=== PATIENT | male | born 1965 | race African-American/Black ===

== ENCOUNTER 2019-04-25 11:54 | Inpatient (IN) | payer SELFPAY ==
[2019-04-25 13:26] LABS: #Basophils 0.1 thou/uL (0.0-0.2); #Lymphocytes 2.4 thou/uL (1.20-3.40); #Monocytes 0.8 thou/uL (0.11-0.59); #Neutrophils 5.7 thou/uL (1.40-6.50); %Basophils 0.8 % (0.0-1.0); %Eosinophils 0.4 % (0.0-10.0); %Lymphocytes 26.2 % (21.0-51.0); %Monocytes 8.9 % (0.0-10.0); %Neutrophils 63.7 % (42.0-75.0); Hemoglobin 16.2 g/dL (14.0-18.0); Mean Corpuscular HGB CONC 32.1 g/dL (32.0-36.0); Mean Corpuscular Hemoglobin 29.3 pg (27.0-31.0); Mean Platelet Volume 6.5 fL (7.4-10.4); Platelet Count 240 thou/uL (130-400); Red Blood Cell (RBC) Count 5.55 mill/uL (4.70-6.10)
[2019-04-25 13:49] LABS: ALT (SGPT) 38 U/L (8-55); AST (SGOT) 49 U/L (5-34); Albumin 4.7 g/dL (3.5-5.0); Alkaline Phosphatase 102 U/L (40-150); Anion Gap 16 mmol/L (10-20); BUN (Urea Nitrogen) 57 mg/dL (8.4-25.7); Bilirubin, Total 1.5 mg/dL (0.2-1.2); CK (CPK) 945 U/L (30-200); Calc. Creatinine Clearance 0 mL/min (70-130); Calcium 10.3 mg/dL (7.8-10.44); Carbon Dioxide 27 mmol/L (22-29); Chloride 92 mmol/L (98-107); Estimated GFR-MDRD 23; Globulin 4.6 g/dL (2.4-3.5); Glucose 104 mg/dL (70-105); Lipase 17 U/L (8-78); Potassium 3.6 mmol/L (3.5-5.1); Protein, Total 9.3 g/dL (6.0-8.3); Sodium 131 mmol/L (136-145)
[2019-04-25] MEDS ORDERED: Ondansetron PF 4 MG/2 ML Vial ONE (15:00)
--- NOTE | 2019-04-25 15:05 | PDOC.FPRHP ---
- History of Present Illness Chief Complaint: nausea and vomiting History of Present Illness: 54 y/o aa male patient presents to the ED with nausea and vomiting since Sunday. He states that he was working in the heat on Sunday and got overheated. He started feeling nauseous and has been vomiting intermittently since then. He complains of not being able to keep any food or fluids down the past X3 days. Patient denies any dysuria, hematuria, or dark urine. He denies any muscle aches , fever, or joint pains. He states that he has had some muscle cramping the past couple of days, that is new. Patient denies any chest pain, shortness of breath, or headaches. - Allergies/Adverse Reactions Allergies Allergy/AdvReac Type Severity Reaction Status Date / Time No Known Allergies Allergy Unverified 04/25/19 14:57 - History PMHx: patient has no know medical problems PSHx: no past surgeries FHx: Mom- HTN, Brother-HTN. Social: Patient denies any drug, etoh, or tobacco abuse. Works in a [employer] in the heat. - Review of Systems General: denies: fever/chills, weight/appetite/sleep changes, night sweats ENT: denies: nasal congestion, rhinorrhea Respiratory: denies: cough, shortness of breath Cardiovascular: denies: chest pain, edema Gastrointestinal: reports: nausea, vomiting. denies: diarrhea, constipation, GI bleeding Genitourinary: denies: incontinence, dysuria, polyuria, discharge Skin: denies: rashes Musculoskeletal: reports: other (muscle cramps). denies: pain Neurological: denies: syncope - Vital signs BP: 118/87 HR: 58 RR: 18 Tmax: 98.2 Pox: 96% on RA Wt: 68.04 - Physical Exam Constitutional: NAD, awake, alert and oriented, well developed HEENT: normocephalic and atraumatic, PERRLA, EOMI, conjunctiva clear, no scleral icterus, grossly normal vision, grossly normal hearing, other (dry mucus membranes) Neck: supple, FROM, trachea midline, no JVD Chest: no-tender to palpation, no lesions Heart: RRR, normal S1/S2, no murmurs/rubs/gallops, pulses present, no edema Lungs: CTAB, no respiratory distress, good air movement, no rales/rhonchi, no wheezing, no retractions Abdomen: soft, non-tender, bowel sounds present, no masses/distention, no hernias Musculoskeletal: normal structure, normal tone, ROM grossly normal Neurological: no focal deficit Skin: no rash/lesions, capillary refill <2 seconds (Delayed skin turgor) Heme/Lymphatic: no unusual bruising or bleeding Psychiatric: normal mood and affect, good judgment and insight, intact recent and remote memory FMR H&P: Results - Labs Result Diagrams: 04/25/19 13:09 04/25/19 13:09 Lab results: WBC 9.0 thou/uL (4.8-10.8) 04/25/19 13:09 Hgb 16.2 g/dL (14.0-18.0) 04/25/19 13:09 Hct 50.5 % (42.0-52.0) 04/25/19 13:09 MCV 91.0 fL (78.0-98.0) 04/25/19 13:09 Plt Count 240 thou/uL (130-400) 04/25/19 13:09 Neutrophils % 63.7 % (42.0-75.0) 04/25/19 13:09 Sodium 131 mmol/L (136-145) L 04/25/19 13:09 Potassium 3.6 mmol/L (3.5-5.1) 04/25/19 13:09 Chloride 92 mmol/L (98-107) L 04/25/19 13:09 Carbon Dioxide 27 mmol/L (22-29) 04/25/19 13:09 BUN 57 mg/dL (8.4-25.7) H 04/25/19 13:09 Creatinine 3.39 mg/dL (0.7-1.3) H 04/25/19 13:09 Glucose 104 mg/dL (70-105) 04/25/19 13:09 Calcium 10.3 mg/dL (7.8-10.44) 04/25/19 13:09 Total Bilirubin 1.5 mg/dL (0.2-1.2) H 04/25/19 13:09 AST 49 U/L (5-34) H 04/25/19 13:09 ALT 38 U/L (8-55) 04/25/19 13:09 Alkaline Phosphatase 102 U/L (40-150) 04/25/19 13:09 Creatine Kinase 945 U/L (30-200) H 04/25/19 13:09 Serum Total Protein 9.3 g/dL (6.0-8.3) H 04/25/19 13:09 Albumin 4.7 g/dL (3.5-5.0) 04/25/19 13:09 Lipase 17 U/L (8-78) 04/25/19 13:09 FMR H&P: A/P - Problem List (1) Acute renal failure Current Visit: Yes Status: Acute (2) Stage 3 acute kidney injury Current Visit: Yes Status: Acute Code(s): N17.9 - ACUTE KIDNEY FAILURE, UNSPECIFIED (3) Dehydration Current Visit: Yes Status: Acute Code(s): E86.0 - DEHYDRATION (4) Liver enzyme elevation Current Visit: Yes Status: Acute Code(s): R74.8 - ABNORMAL LEVELS OF OTHER SERUM ENZYMES (5) Hyponatremia Current Visit: Yes Status: Acute Code(s): E87.1 - HYPO-OSMOLALITY AND HYPONATREMIA (6) Elevated CPK Current Visit: Yes Status: Acute - Plan 54 y/o male admitted inpatient to medical for Acute Renal Failure secondary to volume depletion and dehydration. 1. Acute Renal Failure -Most likely secondary to dehydration and volume depletion. Patient works outside in a [employer] with very hot environment. Plan to rehydrate intravenously and monitory CMP. -Cr 3.39, BUN 57 -CK 945 -UA results pending -Ordered 2 L of IV LR bolus to be given in the ED. -Start 200 mL/hr LR after fluid bolus -recheck CMP in the AM 2. Dehydration -Patient appears clinically dehydrated and has lab evidence of AKF -bolus fluids and then 200 mL/hr IV rehydration 3. Hypovolemic Hyponatremia -Most likely due to hypovolemia secondary to dehydration. -Na is 131 -monitor CMP for improvement post fluid resuscitation 4. Liver enzyme elevation -AST 49, ALT 38 -Likely secondary to hypovolemia -will recheck in AM 5. Elevated CK -CK 945 -continue IV hydration -order urine myoglobin -Recheck in AM 6. Full Code 7. DVT PPX: SCD's 9. Diet: regular Disposition/LOS: Patient is stable. Will intravenously hydrate at 200 mL/hr after fluid bolus, and reevaluate labs in the morning. 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 He reports still going to work and having profuse sweating. For the last couple of days he has been unable to tolerate PO. He reports that he has not had any body aches, AMS, or changes to medication. He denies SOB, fevers, chills, diarrhea, or recent illness. Please see architecture intern note above for further documentation. Physical Exam: General: NAD, appears stated age. Dry mucous membranes CV: RRR, no murmurs Respiratory: CTA bilaterally Abdomen: Soft, nontender, normoactive BS Extremities: Moves all four extremities. No edema Neuro: No focal deficits. CN 2 -12 grossly intact Psych: A&O x3. - Plan Date/Time: 04/25/19 0495 I, Kumar Longoria MD, have evaluated this patient and agree with findings/ plan as outlined by architecture intern resident. Pertinent changes/additions are listed here. 1. Acute Renal Failure secondary to volume depletion - s/p 2L NS in ED - IVF LR @ 200 ml/hr - Monitor urine output - Repeat CMP in AM - Zofran for n/v 2. Elevated CK - 945 on presentation - Repeat CK in AM - Consider urine myoglobin testing 3. Hyperbilirubinemia - Likely secondary to dehydration 4. Hyponatremia - Likely secondary to volume depletion 5. Mild elevated AST - Could be due to alcohol use - Trend with CMP CODE STATUS: FULL CODE PCP: CC Disposition: Stable, will admit to Medical floor for further monitoring and evaluation. Addendum - Attending - Attending Attestation Date/Time: 04/25/19 9950 I personally evaluated the patient and discussed the management with Dr. Larsen/ Swtai. I agree with the History, Examination, Assessment and Plan documented above with any addition or exceptions noted below. Patient with no known medical history here with 3 days of nausea/vomiting and decreased PO intake in the setting of working in hot environment. He has developed some malaise but endorses sweating normally, producing adequate urine , and denies any dark urine, headache, body aches, chest pain, shortness of breath. He does not take any medications daily. His exam is benign and vitals are stable. He has creatinine of >3, increased from a previous lab we have on file here that showed normal creatinine. He also has a mild increase in CK to < 1000. Patient will be admitted for AKI3/ARF, perform urine studies but anticipate this is all pre-renal in nature and due to decreased effective circulating volume. Will give aggressive IV fluids, recheck labs tomorrow. Low suspicion for other causes as his electrolytes are consistent with hypovolemia. Will pursue further workup including renal u/s if his values do not improve through the night. No indication for nephrology consult at this time as no urgent indication for dialytic intervention.
[2019-04-25 16:09] LABS: Bilirubin Negative (Negative); Blood, Urine Trace (Negative); Clarity Turbid (Clear); Glucose, Urine (Dipstick) Normal (Negative); Leukocyte Negative Leu/uL (Negative); Nitrite Negative (Negative); Protein, Urine (Dipstick) 30 mg/dL (Neg-Trace); RBC/HPF 0-3 HPF (0-3); Squamous Epithelial 0-3 HPF (0-3); Urobilinogen Normal mg/dL (Less than 2); WBC/HPF 21-50 HPF (0-3)
[2019-04-25 16:34] LABS: Bacteria/HPF None Seen HPF (None Seen)
[2019-04-25] MEDS ORDERED: Ondansetron PF 4 MG/2 ML Vial IVP PRN (17:14)
[2019-04-25] MEDS ORDERED: Lactated Ringer's 1,000 ML IV SCH (17:14)
[2019-04-25] MEDS ORDERED: Ondansetron ODT 4 MG TAB PO PRN (17:14)
[2019-04-25 17:59] VITALS: BMI 19.2
[2019-04-25] MEDS: Sodium Chloride 0.9% 1,000 ML IV SCH (20:39)
--- NOTE | 2019-04-25 21:16 | CON ---
DATE OF CONSULTATION: 04/25/2019 CONSULTING PHYSICIAN: Dr. Larsen. REASON FOR CONSULT: Acute kidney injury. REASON FOR ADMISSION: Nausea, vomiting. HISTORY OF PRESENT ILLNESS: This is a 54-year-old male with no significant past medical history, came to the hospital with nausea, vomiting, was found to have elevated creatinine, baseline is not available and creatinine was 3.3. The patient denies any significant renal issue in the past. His creatinine in 2015 was 0.9. He had a few episodes of vomiting. No chest pain or palpitation. No fever or chills. PAST MEDICAL HISTORY: None. PAST SURGICAL HISTORY: Denies any past surgical history. HOME MEDICATIONS: None. ALLERGIES: NO KNOWN DRUG ALLERGIES. SOCIAL HISTORY: No smoking, alcohol, or illicit drug abuse. FAMILY HISTORY: No history of kidney disease. REVIEW OF SYSTEMS: CONSTITUTIONAL: Negative for weight loss or gain, ability to conduct usual activities. SKIN: Negative for rash, itching. EYES: Negative for double vision, pain. ENT/MOUTH: Negative for nose bleeding, neck stiffness, pain, tenderness. CARDIOVASCULAR: Negative for palpitations, dyspnea on exertion, orthopnea. RESPIRATORY: Negative for shortness of breath, wheezing, cough, hemoptysis, fever or night sweats. GASTROINTESTINAL: Negative for poor appetite, abdominal pain, heartburn, nausea, vomiting, constipation, or diarrhea. GENITOURINARY: Negative for urgency, frequency, dysuria, nocturia. MUSCULOSKELETAL: Negative for pain, swelling. NEUROLOGIC/PSYCHIATRIC: Negative for anxiety, depression. ALLERGY/IMMUNOLOGIC: Negative for skin rash, bleeding tendency. Rest are negative review of systems. PHYSICAL EXAMINATION: GENERAL: This is a thin-built male, in no apparent distress. VITAL SIGNS: Temperature 97.7, pulse 50, respiratory rate 18, blood pressure 120/64. HEENT: Atraumatic, normocephalic. Oral mucosa is moist. NECK: Supple. CV: S1, S2 heard. Rate and rhythm regular. RESPIRATORY: Clear. GI: Abdomen is soft. MUSCULOSKELETAL: No tenderness, no edema. DERMATOLOGIC: No skin rash. NEUROLOGIC: Awake, alert. PSYCHIATRIC: Mood and affect normal. LABORATORY DATA: Hemoglobin 16.2, potassium 3.6, BUN is 57, and creatinine is 3.3. ASSESSMENT AND PLAN: 1. Acute kidney injury, most likely from volume depletion. 2. Hyponatremia. Continue IV hydration. 3. Hypochloremia. 4. Elevated liver enzymes. 5. Bradycardia, follow. 6. Hemoconcentration. 7. Edema, controlled. Overall seems to be from volume depletion. Plan is to hydrate. We will stop Ringer's lactate and start on NS and we will follow. We will check renal ultrasound. Job ID: [id number]
[2019-04-26] MEDS: Sodium Chloride 0.9% 1,000 ML IV SCH ×2 (03:27→08:17)
[2019-04-26 05:56] LABS: ALT (SGPT) 25 U/L (8-55); AST (SGOT) 27 U/L (5-34); Albumin 3.2 g/dL (3.5-5.0); Alkaline Phosphatase 73 U/L (40-150); Anion Gap 9 mmol/L (10-20); BUN (Urea Nitrogen) 33 mg/dL (8.4-25.7); Bilirubin, Total 0.7 mg/dL (0.2-1.2); CK (CPK) 465 U/L (30-200); Calc. Creatinine Clearance 71 mL/min (70-130); Calcium 8.5 mg/dL (7.8-10.44); Carbon Dioxide 24 mmol/L (22-29); Chloride 107 mmol/L (98-107); Estimated GFR-MDRD 78; Globulin 3.1 g/dL (2.4-3.5); Glucose 101 mg/dL (70-105); Protein, Total 6.3 g/dL (6.0-8.3); Sodium 136 mmol/L (136-145)
--- NOTE | 2019-04-26 06:15 | PDOC.FM ---
- Subjective Subjective: States he is feeling much better today, keeping fluids and food down. Denies any nausea. Urinating well. - Objective MAR Reviewed: Yes Vital Signs & Weight: Vital Signs (12 hours) Temp Pulse Resp BP Pulse Ox 04/26/19 04:00 98.0 F 51 L 20 94/56 L 97 04/26/19 00:00 98.2 F 56 L 20 93/54 L 98 04/25/19 20:00 98 04/25/19 19:48 97.6 F 59 L 20 108/61 98 04/25/19 18:16 98 Weight Weight 70.534 kg Result Diagrams: 04/25/19 13:09 04/26/19 04:59 Phys Exam - Physical Examination Constitutional: NAD HEENT: PERRLA, moist MMs, sclera anicteric Neck: no nodes, no JVD, supple, full ROM Respiratory: no wheezing, no rales, no rhonchi, clear to auscultation bilateral Cardiovascular: RRR, no significant murmur, no rub Gastrointestinal: soft, non-tender, no distention, positive bowel sounds Musculoskeletal: no edema, pulses present Neurological: non-focal, normal sensation, moves all 4 limbs Psychiatric: normal affect, A&O x 3 Skin: no rash, normal turgor, cap refill <2 seconds Dx/Plan (1) Acute renal failure Status: Acute (2) Stage 3 acute kidney injury Code(s): N17.9 - ACUTE KIDNEY FAILURE, UNSPECIFIED Status: Acute (3) Dehydration Code(s): E86.0 - DEHYDRATION Status: Acute (4) Liver enzyme elevation Code(s): R74.8 - ABNORMAL LEVELS OF OTHER SERUM ENZYMES Status: Acute (5) Hyponatremia Code(s): E87.1 - HYPO-OSMOLALITY AND HYPONATREMIA Status: Acute (6) Elevated CPK Status: Acute - Plan Plan: 54 y/o male admitted inpatient to medical for Acute Renal Failure secondary to volume depletion and dehydration. 1. Acute Renal Failure -Most likely secondary to dehydration and volume depletion. 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 Improved clinically and labs improved today. -Cr 3.39--> 1.17, BUN 57--> 33 -CK 945--> 465 -improved kidney function. Plan to discontinue IV hydration. 2. Dehydration -improvement through labs and clinically. -D/C IV hydration. 3. Hypovolemic Hyponatremia -Most likely due to hypovolemia secondary to dehydration. -Na is 131--> 136 -improved post fluids 4. Liver enzyme elevation -AST 49--> 27, ALT 38-->25 -Likely secondary to hypovolemia -improved today 5. Elevated CK -CK 945 --> 465 -improving 6. Full Code disposition: Patient stable, improved post fluids. Plan to discharge home today. Addendum - Attending - Attending Attestation Date/Time: 04/26/19 6801 I personally evaluated the patient and discussed the management with Dr. Larsen. I agree with the History, Examination, Assessment and Plan documented above with any addition or exceptions noted below. Patient here for suspected pre-renal GUANAKITO that resulted in massive increase in creatinine. His renal function is normal today with IVF hydration. He reports no nausea and was able to tolerate PO well overnight. Awaiting renal u/s, likely stable for discharge today with PO hydration and outpatient follow up.
--- NOTE | 2019-04-26 08:38 | ULT ---
BILATERAL RENAL ULTRASOUND: Date: 04/26/19 INDICATION: Acute renal injury. COMPARISON: None. FINDINGS: Right kidney measures 10.3 x 3.5 x 5.2 cm. Left kidney measures 11.1 x 4.7 x 4.3 cm. No focal renal l esion or hydronephrosis evident. There are bilateral ureteral jets. Visualized bladder is unremarkabl e appearing. IMPRESSION: No focal renal lesion or hydronephrosis. POS: BH
[2019-04-26 11:55] VITALS: BP 93/57; TEMP 98.2
--- NOTE | 2019-04-26 13:19 | PRG ---
DATE OF SERVICE: 04/26/2019 SUBJECTIVE: Patient was seen and examined at bedside and overnight events noted. Patient denies any shortness of breath or chest pain or palpitation. No history of nausea or vomiting or diarrhea or fever or chills or cramps. OBJECTIVE: GENERAL: This is a thin-built male, in no apparent distress. VITAL SIGNS: Temperature 98.2. Heart rate 59. Respiratory rate 16. Blood pressure 93/57. HEENT: Atraumatic, normocephalic. Oral mucosa is moist NECK: Supple. CARDIOVASCULAR: S1, S2 heard. Rate and rhythm regular. RESPIRATORY: Clear to auscultation. GASTROINTESTINAL: Abdomen is soft. MUSCULOSKELETAL: No tenderness. No edema. DERMATOLOGIC: No skin rash. NEUROLOGIC: Alert and awake and oriented X3. No focal neurologic deficits. Moving all the extremities. PSYCHIATRIC: Mood and affect normal. LABORATORY DATA: Potassium 4.0, BUN is 33, and creatinine is 1.1. ASSESSMENT AND PLAN: 1. Acute kidney injury, much better. 2. Hyponatremia. 3. Hypokalemia. 4. Bradycardia. 5. Edema, controlled. Renal function is much better. We will follow. Job ID: [id number]
--- NOTE | 2019-04-27 05:12 | DIS ---
DATE OF ADMISSION: 04/25/2019 DATE OF DISCHARGE: 04/26/2019 Admission Attending: Dr. Ilan Shirley Discharge Attending: Dr. Ilan Shirley CONSULTS: Dr. Stubbs. PROCEDURES: None. PRIMARY DIAGNOSES: Acute renal failure secondary to pre-renal azotemia due to hypovolemia, dehydration, hyponatremia secondary to hypovolemia, elevated CK, and elevated liver enzymes. DISCHARGE MEDICATIONS: Zofran 4 mg tablets q.6 hours p.r.n. HISTORY OF PRESENT ILLNESS/HOSPITAL COURSE: Mr. Blas is a 54-year-old healthy male, who came in to the emergency department for about 3 days of nausea and vomiting, and not being able to hold any fluids or food down. He said that on Sunday afternoon, he got very overheated at work and started getting very nauseous and over-sweating. He states that he started vomiting and has had a couple of episodes vomiting each day and intractable nausea. He was found to have a creatinine of 3.39, BUN of 57, and a CK of 945. Sodium of 131, AST of 49, and ALT of 39. He was given 2 liter bolus of fluid in the emergency department ordered by the Family Medicine residency team, none prior to that; then he was started around 200 mL an hour of fluid resuscitation that afternoon, which was titrated down slowly. This morning, his creatinine was 1.17, BUN 33, and CK 465. Sodium improved to 136. AST went down to 27 and ALT to 25. The patient improved upon fluid resuscitation. Nephrology saw the patient as well. Renal ultrasound results showed no focal renal lesions or hydronephrosis. The patient was stable and denied any further nausea or vomiting. DISPOSITION: The patient is stable for discharge and improved upon fluid resuscitation. DISCHARGE INSTRUCTIONS: 1. Location: To home. 2. Diet: Continue oral fluid rehydration, and regular diet. 3. Activity: As tolerated. Stay out of the heat. 4. Followup: With primary care in less than a week. Job ID: [id number] MTDD
== END 2019-04-26 13:30 | disposition home or self-care (01) | DRG 683 ==
LOC: ERS 11:54 → T4-A 14:35 → OBSVTOIN 14:35
PROVIDERS: ADMIT Student in an Organized Health Care Education/Training Program; ATTEND Student in an Organized Health Care Education/Training Program
DX: N17.9 Acute kidney failure, unspecified (principal); E87.1 Hypo-osmolality and hyponatremia; N18.3 Chronic kidney disease, stage 3 (moderate); E86.0 Dehydration; R74.8 Abnormal levels of other serum enzymes; E86.1 Hypovolemia; E87.8 Other disorders of electrolyte and fluid balance, not elsewhere classified; E87.6 Hypokalemia; R00.1 Bradycardia, unspecified
CPT/HCPCS: 36415; 36416; 76770; 80053; 81003; 81015; 82550; 83690; 85025; 96361; 96374; J2405

== ENCOUNTER 2019-06-20 20:53 | Observation (INO) | payer BC, SELFPAY ==
[2019-06-20 21:25] LABS: #Eosinphils 0.1 thou/uL (0.0-0.7); #Lymphocytes 1.8 thou/uL (1.20-3.40); #Monocytes 0.7 thou/uL (0.11-0.59); #Neutrophils 6.1 thou/uL (1.40-6.50); %Basophils 0.3 % (0.0-1.0); %Eosinophils 0.8 % (0.0-10.0); %Lymphocytes 20.9 % (21.0-51.0); %Monocytes 7.9 % (0.0-10.0); %Neutrophils 70.2 % (42.0-75.0); Hemoglobin 15.2 g/dL (14.0-18.0); Mean Corpuscular HGB CONC 33.9 g/dL (32.0-36.0); Mean Corpuscular Hemoglobin 30.7 pg (27.0-31.0); Mean Corpuscular Volume 90.5 fL (78.0-98.0); Mean Platelet Volume 6.4 fL (7.4-10.4); Platelet Count 236 thou/uL (130-400); RBC Distribution Width 12.2 % (11.5-14.5); Red Blood Cell (RBC) Count 4.96 mill/uL (4.70-6.10); White Blood Cell (WBC) Count 8.6 thou/uL (4.8-10.8)
[2019-06-20 21:46] LABS: ALT (SGPT) 19 U/L (8-55); AST (SGOT) 24 U/L (5-34); Albumin 4.5 g/dL (3.5-5.0); Alkaline Phosphatase 107 U/L (40-150); Anion Gap 16 mmol/L (10-20); BUN (Urea Nitrogen) 21 mg/dL (8.4-25.7); Bilirubin, Total 1.4 mg/dL (0.2-1.2); CK (CPK) 467 U/L (30-200); Calc. Creatinine Clearance 0 mL/min (70-130); Carbon Dioxide 28 mmol/L (22-29); Chloride 94 mmol/L (98-107); Estimated GFR-MDRD 42; Glucose 139 mg/dL (70-105); Potassium 3.4 mmol/L (3.5-5.1); Protein, Total 8.5 g/dL (6.0-8.3); Sodium 135 mmol/L (136-145)
[2019-06-21 00:31] VITALS: BMI 18.6
[2019-06-21] MEDS ORDERED: Ondansetron ODT 4 MG TAB PO PRN (02:56)
[2019-06-21] MEDS ORDERED: Ondansetron PF 4 MG/2 ML Vial IVP PRN (02:56)
[2019-06-21] MEDS ORDERED: Acetaminophen 650 MG Suppository PR PRN (02:56)
[2019-06-21] MEDS ORDERED: Acetaminophen 325 MG TAB PO PRN (02:56)
[2019-06-21] MEDS: Sodium Chloride 0.9% 1,000 ML IV SCH ×4 (04:07→14:10)
[2019-06-21 07:56] LABS: ALT (SGPT) 11 U/L (8-55); AST (SGOT) 16 U/L (5-34); Albumin 3.1 g/dL (3.5-5.0); Alkaline Phosphatase 74 U/L (40-150); Anion Gap 9 mmol/L (10-20); BUN (Urea Nitrogen) 16 mg/dL (8.4-25.7); Bilirubin, Total 0.8 mg/dL (0.2-1.2); CK (CPK) 311 U/L (30-200); Calc. Creatinine Clearance 67 mL/min (70-130); Carbon Dioxide 27 mmol/L (22-29); Chloride 103 mmol/L (98-107); Estimated GFR-MDRD 82; Globulin 2.7 g/dL (2.4-3.5); Glucose 90 mg/dL (70-105); Magnesium 1.8 mg/dL (1.6-2.6); Potassium 3.9 mmol/L (3.5-5.1); Protein, Total 5.8 g/dL (6.0-8.3); Sodium 135 mmol/L (136-145)
[2019-06-21] MEDS ORDERED: hydrALAZINE 20 MG/ML VIAL SLOW IVP PRN (08:13)
[2019-06-21] MEDS ORDERED: HYDROcodone/Acetaminophen 5/325 mg Tablet PO PRN (08:13)
[2019-06-21] MEDS ORDERED: Calcium Carbonate 500 MG ChewTAB PO PRN (08:13)
[2019-06-21] MEDS ORDERED: Loratadine 10 MG TAB PO PRN (08:13)
[2019-06-21] MEDS ORDERED: Artificial Tears 18 DROP/0.9 ML EA EYE PRN (08:13)
[2019-06-21] MEDS ORDERED: Senokot S 8.6-50 MG TAB PO PRN (08:13)
[2019-06-21] MEDS ORDERED: Sodium Chloride 0.65% Nasal 44 ML BOT EA NARE PRN (08:13)
[2019-06-21] MEDS ORDERED: Diabetic Tussin 200 MG/10 ML UDCUP PO PRN (08:13)
[2019-06-21] MEDS ORDERED: Loperamide HCl 2 MG CAP PO PRN (08:13)
[2019-06-21] MEDS ORDERED: Cepastat Lozenges 1 LOZ PO PRN (08:13)
[2019-06-21] MEDS ORDERED: Famotidine/PF 20 mg/2ml Vial SLOW IVP SCH (09:00)
[2019-06-21 09:27] LABS: #Eosinphils 0.1 thou/uL (0.0-0.7); #Lymphocytes 2.5 thou/uL (1.20-3.40); #Monocytes 0.8 thou/uL (0.11-0.59); #Neutrophils 4.4 thou/uL (1.40-6.50); %Basophils 0.1 % (0.0-1.0); %Eosinophils 1.2 % (0.0-10.0); %Lymphocytes 32.2 % (21.0-51.0); %Monocytes 10.7 % (0.0-10.0); %Neutrophils 55.9 % (42.0-75.0); Hemoglobin 11.8 g/dL (14.0-18.0); Mean Corpuscular HGB CONC 33.3 g/dL (32.0-36.0); Mean Corpuscular Hemoglobin 30.6 pg (27.0-31.0); Mean Corpuscular Volume 91.8 fL (78.0-98.0); Mean Platelet Volume 6.8 fL (7.4-10.4); Platelet Count 211 thou/uL (130-400); RBC Distribution Width 12.2 % (11.5-14.5); Red Blood Cell (RBC) Count 3.85 mill/uL (4.70-6.10); White Blood Cell (WBC) Count 7.9 thou/uL (4.8-10.8)
[2019-06-21 09:32] LABS: Bacteria/HPF None Seen HPF (None Seen); Bilirubin Negative (Negative); Blood, Urine Negative (Negative); Clarity Clear (Clear); Glucose, Urine (Dipstick) Normal (Negative); Leukocyte Negative Leu/uL (Negative); Nitrite Negative (Negative); Protein, Urine (Dipstick) Negative (Neg-Trace); RBC/HPF 0-3 HPF (0-3); Squamous Epithelial 0-3 HPF (0-3); Urobilinogen Normal mg/dL (Less than 2)
[2019-06-21 09:33] LABS: Urine Culture Reflex Yes Yes
[2019-06-21 09:39] LABS: Amphetamine Not Detected (NotDetected); Barbiturates Screen Not Detected (NotDetected); Benzodiazepine Screen Not Detected (NotDetected); Cocaine Metabolite Screen Not Detected (NotDetected); Medtox Control Line Valid? VALID (VALID); Medtox Reader # READER 4; Methadone Not Detected (NotDetected); Methamphetamine Not Detected (NotDetected); Opiate Screen Not Detected (NotDetected); Oxycodone Screen Not Detected (NotDetected); Phencyclidine (PCP) Not Detected (NotDetected); THC/Cannabinoid Screen Not Detected (NotDetected); Tricyclic Screen Not Detected (NotDetected)
--- NOTE | 2019-06-21 12:31 | PDOC.HOSPP ---
- Subjective Encounter Date: 06/21/19 Encounter Time: 08:45 Subjective: Patient seen and examined. No new complaints. No overnight events - Objective Vital Signs & Weight: Vital Signs (12 hours) Temp Pulse Resp BP Pulse Ox 06/21/19 12:00 98.1 F 55 L 16 91/50 L 98 06/21/19 08:00 99/60 99 06/21/19 07:45 97.8 F 52 L 18 99 06/21/19 04:00 98.0 F 51 L 16 93/55 L 98 Weight Weight 141 lb 2 oz I&O: 06/20/19 06/21/19 06/22/19 06:59 06:59 06:59 Intake Total 1999 240 Balance 1999 240 Result Diagrams: 06/21/19 06:38 06/21/19 06:38 Hospitalist ROS - Review of Systems ENT: denies: ear pain, ear discharge, nose pain, nose discharge, nose congestion , mouth pain, mouth swelling, throat pain, throat swelling, other Respiratory: denies: cough, dry, shortness of breath, hemoptysis, SOB with excertion, pleuritic pain, sputum, wheezing, other Cardiovascular: denies: chest pain, palpitations, orthopnea, paroxysmal noc. dyspnea, edema, light headedness, other Gastrointestinal: denies: nausea, vomitting, abdominal pain, diarrhea, constipation, melena, hematochezia, other Genitourinary: denies: dysuria, frequency, incontinence, hematuria, retention, other Musculoskeletal: denies: neck pain, shoulder pain, arm pain, back pain, hand pain, leg pain, foot pain, other Skin: denies: rash, lesions, naveed, bruising, other - Medication Medications: Active Medications Generic Name Dose Route Start Last Admin Trade Name Freq PRN Reason Stop Dose Admin Famotidine 20 mg 06/21/19 09:00 06/21/19 07:53 Pepcid SLOW IVP 20 mg QAM DIMAS Administration Sodium Chloride 10 ml 06/21/19 09:00 06/21/19 07:52 Flush - Normal Saline IVF Not Given Q12HR DIMAS - Exam General Appearance: NAD, awake alert Eye: PERRL, anicteric sclera ENT: normocephalic atraumatic, no oropharyngeal lesions Neck: supple, symmetric, no JVD Heart: RRR, no murmur, no gallops Respiratory: CTAB, no wheezes, no rales Gastrointestinal: soft, non-tender, non-distended Extremities: no cyanosis, no clubbing, no edema Skin: normal turgor, no lesions Neurological: CN's grossly intact, normal sensation to touch, no focal deficits Musculoskeletal: normal tone, normal strength Psychiatric: normal affect, normal behavior, A&O x 3 Hosp A/P (1) Acute renal failure Status: Acute (2) Dehydration Code(s): E86.0 - DEHYDRATION Status: Acute (3) Rhabdomyolysis Code(s): M62.82 - RHABDOMYOLYSIS Status: Acute (4) Hypokalemia Code(s): E87.6 - HYPOKALEMIA Status: Resolved (5) Hyponatremia Code(s): E87.1 - HYPO-OSMOLALITY AND HYPONATREMIA Status: Resolved - Plan old records reviewed/req continue IVF will repeat labs tomorrow medication reviewed as above symptomatic treatment
[2019-06-21] MEDS: Famotidine/PF 20 mg/2ml Vial SLOW IVP SCH (20:47)
[2019-06-22] MEDS: Sodium Chloride 0.9% 1,000 ML IV SCH ×2 (02:00→06:18)
[2019-06-22 07:38] VITALS: BP 99/61; TEMP 98
[2019-06-22 08:02] LABS: #Eosinphils 0.2 thou/uL (0.0-0.7); #Lymphocytes 2.6 thou/uL (1.20-3.40); #Monocytes 0.5 thou/uL (0.11-0.59); %Basophils 0.7 % (0.0-1.0); %Eosinophils 2.9 % (0.0-10.0); %Monocytes 8.8 % (0.0-10.0); %Neutrophils 38.6 % (42.0-75.0); Hemoglobin 11.3 g/dL (14.0-18.0); Mean Corpuscular HGB CONC 32.8 g/dL (32.0-36.0); Mean Corpuscular Hemoglobin 30.5 pg (27.0-31.0); Mean Corpuscular Volume 92.9 fL (78.0-98.0); Platelet Count 192 thou/uL (130-400); RBC Distribution Width 12.4 % (11.5-14.5); Red Blood Cell (RBC) Count 3.71 mill/uL (4.70-6.10); White Blood Cell (WBC) Count 5.2 thou/uL (4.8-10.8)
[2019-06-22] MEDS: Famotidine/PF 20 mg/2ml Vial SLOW IVP SCH (08:08)
[2019-06-22 08:25] LABS: Anion Gap 6 mmol/L (10-20); BUN (Urea Nitrogen) 11 mg/dL (8.4-25.7); CK (CPK) 201 U/L (30-200); Calc. Creatinine Clearance 85 mL/min (70-130); Calcium 8.3 mg/dL (7.8-10.44); Carbon Dioxide 28 mmol/L (22-29); Chloride 109 mmol/L (98-107); Estimated GFR-MDRD Greater than 90; Glucose 89 mg/dL (70-105); Potassium 4.1 mmol/L (3.5-5.1); Sodium 139 mmol/L (136-145)
--- NOTE | 2019-06-22 11:51 | DIS ---
DATE OF ADMISSION: 06/20/2019 DATE OF DISCHARGE: 06/22/2019 PRIMARY CARE PHYSICIAN: [facility] Call Admission. DISCHARGE DISPOSITION: Home. PRIMARY DISCHARGE DIAGNOSES: 1. Acute kidney failure, prerenal, improved. 2. Dehydration, corrected. 3. Rhabdomyolysis, improved. 4. Hypokalemia and hyponatremia, corrected. SECONDARY DISCHARGE DIAGNOSES: None. PRIMARY PROCEDURE/OPERATION: None. RADIOLOGICAL INVESTIGATION: None. SIGNIFICANT LABORATORY DATA: WBC 5.2, hemoglobin 11.3, and platelet 192. Sodium 139, creatinine 0.89. CK 201. LFT normal. Urinalysis normal. Urine drug screen negative. DISCHARGE MEDICATIONS: None. CONTRAINDICATION: None. CODE STATUS: Full code. INPATIENT ICE SCULPTOR: None. ALLERGIES: NO KNOWN DRUG ALLERGIES. DISCHARGE PLAN: Posthospital, the patient will follow up with primary care physician if needed. HOSPITAL COURSE: A 54-year-old male with above-mentioned medical problem, who was admitted in the hospital by Stephie Gonzalez. By the time of discharge, I am not able to see H and P dictated by her. The patient was admitted to the hospital for dehydration, acute kidney failure. He was having mild rhabdomyolysis. His creatinine was 2.03. He was hyponatremic, hypokalemic. His renal function improved with IV fluid. His electrolytes are corrected. His CK is also improving. The patient is back to his normal level. He remained hemodynamically stable. Today, we are discharging him home. He is completely asymptomatic. PHYSICAL EXAMINATION: The patient is seen and examined at bedside today. VITAL SIGNS: Currently, temperature 98.0, pulse 52, respiratory rate 16, saturation 99% on room air, and blood pressure 99/61. Weight 141 pounds. GENERAL: The patient is currently alert, awake, no acute distress. HEENT: Head; normocephalic, atraumatic. LUNGS: Clear to auscultation without any rhonchi. CARDIAC: S1 and S2. Regular without any murmur. ABDOMEN: Soft and benign without any tenderness. EXTREMITIES: No edema. NEUROLOGIC: Nonfocal examination. The patient is stable for discharge today. Job ID: [id number]
--- NOTE | 2019-06-23 07:41 | HP ---
PRIMARY CARE PHYSICIAN: None. CHIEF COMPLAINT: Lightheadedness. HISTORY OF PRESENT ILLNESS: Mr. Blas is a pleasant 54-year-old gentleman with no past medical history, who presented to the emergency department due to feeling lightheaded. 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 The patient states he felt dehydrated and was feeling weak with lightheadedness. He denies having any dizziness or spinning sensation. Denies having any headache. No nausea or vomiting. No shortness of breath or chest pain. On arrival to the emergency department, he was noted to be hypertensive with a blood pressure of 91/61. He had an EKG done showing no ST changes or T-wave abnormalities. He was given 2 L of normal saline. He underwent investigations including laboratory studies which showed a normal full blood count. He had a sodium of 135, potassium of 3.4, BUN of 21, creatinine of 2.03, GFR of 42 compared to 70 in April 2019. LFTs unremarkable except for a total bilirubin of 1.4. His CK was elevated at 467. PAST MEDICAL HISTORY: None. PAST SURGICAL HISTORY: 1. Previous throat surgery. 2. Lip surgery. SOCIAL HISTORY: The patient denies any tobacco use, alcohol consumption or illicit drug use. ALLERGIES: NO KNOWN DRUG ALLERGIES. CURRENT MEDICATIONS: None. PHYSICAL EXAMINATION: GENERAL: The patient appears thin, well developed, and in no acute distress. VITAL SIGNS: Temperature 98, pulse 52, respirations 16, blood pressure 112/62, sats 97% on room air. HEENT: Normocephalic and atraumatic. Pupils are equal, round and reactive to light. Sclerae icterus. Oropharynx is clear. NECK: Supple. No lymphadenopathy. LUNGS: Clear to auscultation bilaterally without any wheezes, rales, or rhonchi. CARDIAC: Regular rate and rhythm. ABDOMEN: Soft, nontender, nondistended. Normoactive bowel sounds present. EXTREMITIES: No lower leg swelling or edema. NEUROLOGIC: Alert and oriented x3. SKIN: Without rash or jaundice. LABORATORY DATA: Full blood count are unremarkable. Sodium 134, potassium 3.4, chloride 94, creatinine 2.03, GFR 42, glucose 139, lactic acid 1.9, calcium 10, total bilirubin 1.4. ALT 19, AST 24, alkaline phosphatase 107. CK 467, troponin I negative. Albumin 4.5. IMAGING DATA: None. IMPRESSION AND PLAN: Mr. Blas is a 54-year-old gentleman who presents with rhabdomyolysis and dehydration from working in the heat without air conditioning. The patient states he has had similar episodes before requiring admission. He presented with lightheadedness only. States he feels back to baseline at present. He had received 2 L of IV fluids in the emergency department. We will plan to repeat laboratory studies including a magnesium level. We will also add urinalysis and drug screen. IV fluids will be continued. For gastrointestinal prophylaxis, we will give famotidine 20 mg IV. Deep venous thrombosis prophylaxis, the patient is ambulatory. Code status full. His surrogate decision maker is his , Brian Blas. The patient's case was discussed with Dr. Morrison, who agrees with plan of care as described above. Job ID: [id number]
--- NOTE | 2019-06-28 13:21 | EKG ---
Test Reason : Blood Pressure : / mmHG Vent. Rate : 088 BPM Atrial Rate : 088 BPM P-R Int : 168 ms QRS Dur : 080 ms QT Int : 366 ms P-R-T Axes : 083 026 065 degrees QTc Int : 442 ms Normal sinus rhythm Biatrial enlargement Abnormal ECG Left ventricular hypertrophy Confirmed by DAYDAY BARBOSA, REYNALDO Nava ([id number]), editorial assistant NONI SALAZAR ([id number]) on 06/28/2019 1:21:13 PM Referred By: Confirmed By:REYNALDO NAYLOR MD
== END 2019-06-22 11:44 | disposition home or self-care (01) ==
LOC: ERS 20:53 → T4-A 23:23
PROVIDERS: ADMIT Hospitalist; ATTEND Hospitalist
DX: N17.9 Acute kidney failure, unspecified (principal); E87.1 Hypo-osmolality and hyponatremia; E86.0 Dehydration; E87.6 Hypokalemia; M62.82 Rhabdomyolysis; T67.5XXA Heat exhaustion, unspecified, initial encounter
CPT/HCPCS: 36415; 80048; 80053; 80306; 81001; 82550; 83605; 83735; 84484; 85025; 87086; 93005; 96360; 96361; 96374; 96376; G0378; S0028

== ENCOUNTER 2019-07-31 19:07 | Emergency (ER) | payer BC | END 2019-07-31 19:44 | disposition home or self-care (01) | LOC: ERS 19:07 | DX: M25.511 Pain in right shoulder (principal) | CPT/HCPCS: 99283 ==

== ENCOUNTER 2023-10-11 12:00 | Emergency (ER) | payer BC, SELFPAY | END 2023-10-11 12:56 | disposition home or self-care (01) | LOC: ERS 12:00 | DX: M54.50 Low back pain, unspecified (principal) | CPT/HCPCS: 99283 ==